=== PATIENT | female | born 1995 | race African-American/Black ===

== ENCOUNTER 2024-11-25 03:21 | Emergency (ER) | payer OTHER ==
[~2024-11-25] VITALS: Ht 167.6 cm; Wt 76.0 kg
[2024-11-25 03:48] VITALS: O2SAT 98
[2024-11-25] MEDS ORDERED: OCUFLX LEFTEYE (04:56)
[2024-11-25] MEDS ORDERED: METR-167 MT (04:56)
[2024-11-25 05:45] VITALS: BP 124/89; PULSE 80; RESP 14; TEMP 36.7; O2SAT 100
== END 2024-11-25 05:50 | disposition home or self-care (01) ==
LOC: ER 03:21
DX: J02.9 Acute pharyngitis, unspecified (principal); H10.89 Other conjunctivitis; N76.0 Acute vaginitis; B37.0 Candidal stomatitis; B96.89 Other specified bacterial agents as the cause of diseases classified elsewhere; Z98.890 Other specified postprocedural states; Z88.8 Allergy status to other drugs, medicaments and biological substances
CPT/HCPCS: 87070; 87210; 87430; 99283